=== PATIENT | female | born 1950 | race African-American/Black ===

== ENCOUNTER 2021-12-21 05:41 | Inpatient (IN) ==
[2021-12-21] MEDS ORDERED: LACTATED RINGERS 1,000 ML IV SCH (06:00)
[2021-12-21] MEDS ORDERED: VANCOMYCIN INJ 1,000 MG in SODIUM CHLORIDE 0.9% 250 ML IV ONE (06:00)
[2021-12-21] MEDS ORDERED: propofoL 200 MG/20 ML VIAL IV ONE (06:16)
[2021-12-21] MEDS ORDERED: MIDAZOLAM 2 MG/2 ML VIAL ONE (06:16)
[2021-12-21] MEDS ORDERED: fentaNYL 100 MCG/2 ML VIAL ONE (06:16)
[2021-12-21] MEDS ORDERED: BUPIVACAINE SPINAL 0.75% 2 ML AMP SPINAL ONE (06:16)
[2021-12-21] MEDS ORDERED: LIDOCAINE 2% 5 ML VIAL ONE (06:16)
[2021-12-21] MEDS ORDERED: KETAMINE 500 MG/10 ML VIAL ONE (06:17)
[2021-12-21] MEDS ORDERED: BACITRACIN OINT 0.9 GM PACK TOP ONE (06:35)
[2021-12-21] MEDS ORDERED: ALBUTEROL 2.5 MG/3 ML NEB RESP TX STA (06:42)
[2021-12-21] MEDS ORDERED: ACETAMINOPHEN 500 MG TABLET ONE (06:44)
[2021-12-21] MEDS ORDERED: ACETAMINOPHEN 500 MG TABLET PO STA (06:45)
[2021-12-21] MEDS ORDERED: LIDOCAINE 1% 5 ML VIAL ONE (06:46)
[2021-12-21] MEDS ORDERED: DEXAMETHASONE 4 MG/1 ML VIAL ONE (06:46)
[2021-12-21] MEDS ORDERED: ROPIVACAINE 0.5% 30 ML VIAL ONE (06:47)
[2021-12-21] MEDS ORDERED: ALBUTEROL 2.5 MG/3 ML NEB RESP TX PRN (07:49)
[2021-12-21] MEDS ORDERED: ROCURONIUM 50 MG/5 ML VIAL IV ONE (07:50)
[2021-12-21] MEDS ORDERED: PHENYLEPHRINE 1 MG/10 ML SYRINGE IV ONE (07:50)
[2021-12-21] MEDS ORDERED: GLUCAGON 1 MG VIAL IM PRN ×2 (07:51→11:32)
[2021-12-21] MEDS ORDERED: ZALEPLON 5 MG CAPSULE PO PRN (07:52)
[2021-12-21] MEDS ORDERED: diphenhydrAMINE CAP 25 MG CAPSULE PO PRN (07:52)
[2021-12-21] MEDS ORDERED: ONDANSETRON 4 MG/2 ML VIAL IV PRN ×2 (07:52→09:25)
[2021-12-21] MEDS ORDERED: MAGNESIUM HYDROXIDE SUSP 30 ML UDCUP PO PRN (07:52)
[2021-12-21] MEDS ORDERED: MORPHINE 2 MG/1 ML SYRINGE IV PRN ×2 (07:52)
[2021-12-21] MEDS ORDERED: GLYCOPYRROLATE 0.4 MG/2 ML VIAL ONE (07:53)
[2021-12-21] MEDS ORDERED: ONDANSETRON 4 MG/2 ML VIAL ONE (07:53)
[2021-12-21] MEDS ORDERED: LACTATED RINGERS 1,000 ML IV ONE (07:53)
[2021-12-21] MEDS ORDERED: NEOSTIGMINE 10 MG/10 ML VIAL ONE (07:53)
[2021-12-21] MEDS ORDERED: DESFLURANE 1 UNIT/15 MINUTE INH ONE (07:54)
[2021-12-21] MEDS ORDERED: DEXTROSE 10% 250 ML BAG IV PRN (08:09)
[2021-12-21] MEDS ORDERED: TRANEXAMIC ACID 1,000 MG/10 ML VIAL ONE (08:12)
[2021-12-21] MEDS ORDERED: diphenhydrAMINE 50 MG/1 ML VIAL IV PRN (09:25)
[2021-12-21] MEDS ORDERED: PROMETHAZINE INJ 25 MG in SODIUM CHLORIDE 0.9% 50 ML IV PRN (09:25)
[2021-12-21] MEDS ORDERED: MEPERIDINE 25 MG/1 ML VIAL IV PRN (09:25)
[2021-12-21] MEDS ORDERED: HYDROmorphone 1 MG/1 ML SYRINGE IV PRN (09:25)
[2021-12-21] MEDS ORDERED: KETOROLAC 30 MG/1 ML VIAL ONE (09:42)
[2021-12-21] MEDS: KETOROLAC 15 MG/1 ML VIAL IV SCH ×3 (09:43→21:09)
[2021-12-21] MEDS ORDERED: DEXTROSE 50% 25 GM/50 ML VIAL IV PRN (11:32)
[2021-12-21] MEDS: INSULIN LISPRO 100 UNIT/ML SUBCUT SCH ×3 (11:55→21:09)
[2021-12-21] MEDS: POTASSIUM CHLORIDE INJ 20 MEQ in LACTATED RINGERS 1,000 ML IV SCH ×2 (12:01→23:19)
[2021-12-21] MEDS: ceFAZolin 2,000 MG/50 ML DUPLEX IV SCH ×2 (15:46→21:10)
[2021-12-21] MEDS: FUROSEMIDE 20 MG TABLET PO SCH (17:15)
[2021-12-21] MEDS: metFORMIN 500 MG TABLET PO SCH (17:16)
[2021-12-21] MEDS: glipiZIDE 10 MG TABLET PO SCH (17:16)
[2021-12-21] MEDS: INSULIN NPH/REGULAR 70/30 100 UNIT/ML SUBCUT SCH (17:16)
[2021-12-21] MEDS: DOCUSATE SODIUM 100 MG CAPSULE PO SCH (21:09)
[2021-12-21] MEDS: GABAPENTIN 100 MG CAPSULE PO SCH (21:09)
[2021-12-21] MEDS: METOPROLOL TARTRATE 25 MG TABLET PO SCH (21:09)
[2021-12-22] MEDS: FONDAPARINUX 2.5 MG/0.5 ML SYRINGE SUBCUT SCH (04:07)
[2021-12-22 04:41] LABS: Basophils % 0.3 % (0.0-0.8); Eosinophils % 0.1 % (0.00-10.9); Hematocrit 30.5 VOL% (35.7-47.0); Hemoglobin 9.4 GM/DL (12.0-16.0); Immature Granulocytes % 0.4 %; Immature Granulocytes Absolute 0.03 #; Lymphocytes # 1.5 10*3/uL (1.4-4.0); Lymphocytes % 20.4 % (21.3-54.2); Mean Corpuscular HGB Conc 30.8 GM/DL (32-36); Mean Platelet Volume 10.1 FL (9.6-12.0); Monocytes # 0.9 10*3/uL (0.11-0.8); Monocytes % 11.3 % (1.7-12.7); Neutrophils % 67.5 % (38.7-73.9); Platelet Count 302 T/CUMM (130-400); Red Blood Count 3.02 MC/CUMM (3.8-5.5); White Blood Count 7.5 T/CUMM (4-12)
[2021-12-22 05:16] LABS: Osmolality,Calculated 276.8 MOS/KG (273-304); Potassium 4.5 MMOL/L (3.5-5.1)
[2021-12-22] MEDS: metFORMIN 500 MG TABLET PO SCH ×2 (08:05→16:42)
[2021-12-22] MEDS: METOPROLOL TARTRATE 25 MG TABLET PO SCH ×2 (08:05→21:09)
[2021-12-22] MEDS: ZINC GLUCONATE 50 MG TABLET PO SCH (08:05)
[2021-12-22] MEDS: CHOLECALCIFEROL 1,000 UNIT TABLET PO SCH (08:05)
[2021-12-22] MEDS: VITAMIN E 400 UNIT CAPSULE PO SCH (08:05)
[2021-12-22] MEDS: DOCUSATE SODIUM 100 MG CAPSULE PO SCH ×2 (08:05→21:09)
[2021-12-22] MEDS: FUROSEMIDE 20 MG TABLET PO SCH ×2 (08:05→16:42)
[2021-12-22] MEDS: ATORVASTATIN 20 MG TABLET PO SCH (08:05)
[2021-12-22] MEDS: POTASSIUM CHLORIDE 10 MEQ TABLET PO SCH (08:05)
[2021-12-22] MEDS: glipiZIDE 10 MG TABLET PO SCH ×2 (08:06→16:42)
[2021-12-22] MEDS: INSULIN NPH/REGULAR 70/30 100 UNIT/ML SUBCUT SCH ×2 (08:07→16:41)
[2021-12-22] MEDS: FLUTICASONE 50 MCG NASAL SPRAY 16 GM BOTTLE BOTH NARES SCH (08:08)
[2021-12-22] MEDS: INSULIN LISPRO 100 UNIT/ML SUBCUT SCH ×4 (08:08→21:10)
[2021-12-22] MEDS: Liraglutide [Victoza 3-Pak] 0.6 mg/0.1 mL (18 mg/3 mL) Pen Injec SUBCUT SCH (08:11)
[2021-12-22] MEDS: amLODIPine 5 MG TABLET PO SCH (08:16)
[2021-12-22] MEDS: GABAPENTIN 100 MG CAPSULE PO SCH (21:09)
[2021-12-23 04:40] LABS: Basophils % 0.1 % (0.0-0.8); Eosinophils # 0.1 10*3/uL (0.0-0.87); Eosinophils % 0.7 % (0.00-10.9); Hematocrit 31.8 VOL% (35.7-47.0); Hemoglobin 9.8 GM/DL (12.0-16.0); Immature Granulocytes % 0.7 %; Immature Granulocytes Absolute 0.07 #; Lymphocytes % 19.2 % (21.3-54.2); Mean Corpuscular HGB Conc 30.8 GM/DL (32-36); Mean Corpuscular Volume 101.3 FL (87-102); Monocytes # 1.3 10*3/uL (0.11-0.8); Monocytes % 12.1 % (1.7-12.7); Neutrophils % 67.2 % (38.7-73.9); Platelet Count 332 T/CUMM (130-400); Red Blood Count 3.14 MC/CUMM (3.8-5.5); Red Cell Distribution Width 14.1 % (9.3-17.3); White Blood Count 10.5 T/CUMM (4-12)
[2021-12-23] MEDS: FONDAPARINUX 2.5 MG/0.5 ML SYRINGE SUBCUT SCH (05:01)
[2021-12-23] MEDS: INSULIN NPH/REGULAR 70/30 100 UNIT/ML SUBCUT SCH ×2 (08:39→17:32)
[2021-12-23] MEDS: FUROSEMIDE 20 MG TABLET PO SCH ×2 (08:40→17:27)
[2021-12-23] MEDS: glipiZIDE 10 MG TABLET PO SCH ×2 (08:40→17:29)
[2021-12-23] MEDS: INSULIN LISPRO 100 UNIT/ML SUBCUT SCH ×4 (08:40→20:40)
[2021-12-23] MEDS: ATORVASTATIN 20 MG TABLET PO SCH (08:41)
[2021-12-23] MEDS: DOCUSATE SODIUM 100 MG CAPSULE PO SCH ×2 (08:41→20:39)
[2021-12-23] MEDS: CHOLECALCIFEROL 1,000 UNIT TABLET PO SCH (08:41)
[2021-12-23] MEDS: metFORMIN 500 MG TABLET PO SCH ×2 (08:41→17:30)
[2021-12-23] MEDS: VITAMIN E 400 UNIT CAPSULE PO SCH (08:41)
[2021-12-23] MEDS: POTASSIUM CHLORIDE 10 MEQ TABLET PO SCH (08:41)
[2021-12-23] MEDS: ZINC GLUCONATE 50 MG TABLET PO SCH (08:41)
[2021-12-23] MEDS: amLODIPine 5 MG TABLET PO SCH (08:42)
[2021-12-23] MEDS: FLUTICASONE 50 MCG NASAL SPRAY 16 GM BOTTLE BOTH NARES SCH (08:42)
[2021-12-23] MEDS: METOPROLOL TARTRATE 25 MG TABLET PO SCH ×2 (08:42→20:38)
[2021-12-23] MEDS: Liraglutide [Victoza 3-Pak] 0.6 mg/0.1 mL (18 mg/3 mL) Pen Injec SUBCUT SCH (10:09)
[2021-12-23] MEDS: GABAPENTIN 100 MG CAPSULE PO SCH (20:38)
[2021-12-24] MEDS: FONDAPARINUX 2.5 MG/0.5 ML SYRINGE SUBCUT SCH (04:20)
[2021-12-24 04:26] LABS: Basophils % 0.1 % (0.0-0.8); Eosinophils # 0.1 10*3/uL (0.0-0.87); Hematocrit 31.5 VOL% (35.7-47.0); Hemoglobin 9.7 GM/DL (12.0-16.0); Immature Granulocytes % 0.3 %; Immature Granulocytes Absolute 0.03 #; Lymphocytes # 1.5 10*3/uL (1.4-4.0); Lymphocytes % 16.8 % (21.3-54.2); Mean Corpuscular HGB Conc 30.8 GM/DL (32-36); Mean Corpuscular Volume 101.3 FL (87-102); Mean Platelet Volume 9.9 FL (9.6-12.0); Monocytes # 1.1 10*3/uL (0.11-0.8); Monocytes % 12.6 % (1.7-12.7); Neutrophils % 69.2 % (38.7-73.9); Platelet Count 315 T/CUMM (130-400); Red Blood Count 3.11 MC/CUMM (3.8-5.5); Red Cell Distribution Width 13.9 % (9.3-17.3); White Blood Count 8.8 T/CUMM (4-12)
[2021-12-24] MEDS: INSULIN LISPRO 100 UNIT/ML SUBCUT SCH ×2 (07:30→13:23)
[2021-12-24] MEDS: ZINC GLUCONATE 50 MG TABLET PO SCH (09:26)
[2021-12-24] MEDS: DOCUSATE SODIUM 100 MG CAPSULE PO SCH (09:26)
[2021-12-24] MEDS: POTASSIUM CHLORIDE 10 MEQ TABLET PO SCH (09:26)
[2021-12-24] MEDS: VITAMIN E 400 UNIT CAPSULE PO SCH (09:26)
[2021-12-24] MEDS: CHOLECALCIFEROL 1,000 UNIT TABLET PO SCH (09:26)
[2021-12-24] MEDS: amLODIPine 5 MG TABLET PO SCH (09:27)
[2021-12-24] MEDS: glipiZIDE 10 MG TABLET PO SCH (09:27)
[2021-12-24] MEDS: METOPROLOL TARTRATE 25 MG TABLET PO SCH (09:27)
[2021-12-24] MEDS: FUROSEMIDE 20 MG TABLET PO SCH (09:27)
[2021-12-24] MEDS: ATORVASTATIN 20 MG TABLET PO SCH (09:27)
[2021-12-24] MEDS: INSULIN NPH/REGULAR 70/30 100 UNIT/ML SUBCUT SCH (09:28)
[2021-12-24] MEDS: FLUTICASONE 50 MCG NASAL SPRAY 16 GM BOTTLE BOTH NARES SCH (09:28)
[2021-12-24] MEDS: metFORMIN 500 MG TABLET PO SCH (09:28)
[2021-12-24] MEDS: Liraglutide [Victoza 3-Pak] 0.6 mg/0.1 mL (18 mg/3 mL) Pen Injec SUBCUT SCH (09:34)
[2021-12-24 12:00] VITALS: BP 147/75
== END 2021-12-24 13:10 | disposition swing bed (61) | DRG 470 ==
LOC: N.OR 05:41 → N.SDSINP 05:47 → N.3E 10:17
PROVIDERS: ADMIT Orthopaedic Surgery; ATTEND Orthopaedic Surgery